=== PATIENT | female | born 1975 | race Caucasian/White ===

== ENCOUNTER 2020-11-16 13:54 | Emergency (ER) | payer OTHER ==
[~2020-11-16] VITALS: Ht 162.6 cm; Wt 142.4 kg
[~2020-11-16 13:54] MED LIST: ALPR0.5T GT; LEVO25TA49 OR; SERT100T OR; TRAZ100T3 OR
[2020-11-16] MEDS ORDERED: HYDROcodone-ACET 10/325MG TAB PO ONE (18:00)
[2020-11-16 20:45] VITALS: BP 150/92
== END 2020-11-16 21:34 | disposition home or self-care (01) ==
LOC: ER 13:54
DX: S82.141A Displaced bicondylar fracture of right tibia, initial encounter for closed fracture (principal); E66.9 Obesity, unspecified; F32.9 Major depressive disorder, single episode, unspecified; E11.9 Type 2 diabetes mellitus without complications; Z68.43 Body mass index [BMI] 50.0-59.9, adult; Z88.0 Allergy status to penicillin; Z79.899 Other long term (current) drug therapy; W18.39XA Other fall on same level, initial encounter; Y93.89 Activity, other specified; Y92.89 Other specified places as the place of occurrence of the external cause; Y99.8 Other external cause status
CPT/HCPCS: 29515; 73562; 73590